=== PATIENT | male | born 2000 | race Two or more races ===

== ENCOUNTER 2021-05-18 18:12 | Emergency (ER) | payer MEDICAID ==
[2021-05-18] MEDS ORDERED: Ondansetron 4 MG Tab.DIS PO ONE (19:03)
== END 2021-05-18 19:18 | disposition left against medical advice (07) ==
LOC: JD.ED 18:12
DX: F19.20 Other psychoactive substance dependence, uncomplicated (principal); Z88.0 Allergy status to penicillin; Z91.041 Radiographic dye allergy status
CPT/HCPCS: 99284

== ENCOUNTER 2021-05-29 12:11 | Emergency (ER) | payer MEDICAID ==
[2021-05-29] MEDS ORDERED: Sodium Chloride 0.9% 10 ML Syringe FLUSH PRN (12:15)
[2021-05-29] MEDS ORDERED: Ondansetron 4 MG/2 ML SDV ONE (12:21)
[2021-05-29] MEDS ORDERED: Ondansetron 4 MG/2 ML SDV IVPUSH ONE (12:27)
[2021-05-29 13:18] LABS: ACETAMINOPHEN 0 ug/mL (10-30)
== END 2021-05-29 13:45 | disposition left against medical advice (07) ==
LOC: JD.ED 12:11
DX: R41.82 Altered mental status, unspecified (principal); Z53.8 Procedure and treatment not carried out for other reasons; Z88.0 Allergy status to penicillin; Z91.041 Radiographic dye allergy status
CPT/HCPCS: 36415; 80053; 80143; 80179; 80307; 83735; 85025; 93005; 96374; 99285; J2405; J3490; 93010; 99283

== ENCOUNTER 2022-02-06 17:19 | Emergency (ER) | payer SELFPAY ==
[2022-02-06] MEDS ORDERED: Lidocaine 1% 10 ML MDV INJECT ONE (19:36)
[2022-02-06] MEDS ORDERED: Bupivacaine 0.5% 10 ML SDV INJECT ONE (19:37)
== END 2022-02-06 20:40 | disposition home or self-care (01) ==
LOC: JD.ED 17:19
DX: L03.012 Cellulitis of left finger (principal); L02.512 Cutaneous abscess of left hand; F17.210 Nicotine dependence, cigarettes, uncomplicated; Z88.0 Allergy status to penicillin; Z91.041 Radiographic dye allergy status
CPT/HCPCS: 26010; 87070; 87075; 87077; 87186; 87205; 99283-25; J3490

== ENCOUNTER 2022-08-25 00:13 | Emergency (ER) | payer SELFPAY ==
[2022-08-25] MEDS ORDERED: methylPREDNISolone Sodium Succinate 125 MG/2 ML SDV IVPUSH ONE (00:51)
[2022-08-25] MEDS ORDERED: Sodium Chloride 0.9% 10 ML Syringe FLUSH PRN (00:51)
[2022-08-25] MEDS ORDERED: Famotidine 20 MG/2 ML SDV IVPUSH ONE (00:51)
[2022-08-25] MEDS ORDERED: diphenhydrAMINE 50 MG/ML SDV IVPUSH ONE (00:52)
== END 2022-08-25 02:12 | disposition home or self-care (01) ==
LOC: JD.ED 00:13
DX: T78.1XXA Other adverse food reactions, not elsewhere classified, initial encounter (principal); F17.210 Nicotine dependence, cigarettes, uncomplicated; Z88.0 Allergy status to penicillin; Z91.041 Radiographic dye allergy status
CPT/HCPCS: 96374; 96375; 99283; J1200; J2930; J3490; 99282

== ENCOUNTER 2023-01-31 21:09 | Emergency (ER) | payer SELFPAY ==
[2023-01-31] MEDS ORDERED: methylPREDNISolone Sodium Succinate 125 MG/2 ML SDV IVPUSH ONE (21:22)
[2023-01-31] MEDS ORDERED: diphenhydrAMINE 50 MG/ML SDV IVPUSH ONE (21:22)
[2023-01-31] MEDS ORDERED: Famotidine 20 MG/2 ML SDV IVPUSH ONE (21:23)
[2023-01-31] MEDS ORDERED: EPINEPHrine 1 MG/ML SDV SUBCUT ONE (21:24)
[2023-01-31] MEDS ORDERED: Sodium Chloride 0.9% 1,000 ML IV SCH (21:30)
== END 2023-01-31 23:10 | disposition home or self-care (01) ==
LOC: JD.ED 21:09
DX: T78.40XA Allergy, unspecified, initial encounter (principal); Z79.899 Other long term (current) drug therapy; Z88.0 Allergy status to penicillin; Z88.1 Allergy status to other antibiotic agents; Z91.048 Other nonmedicinal substance allergy status
CPT/HCPCS: 96372; 96374; 96375; 99283; J0171; J1200; J2930; J3490; J7030